=== PATIENT | female | born 1980 | race Caucasian/White ===

== ENCOUNTER 2019-04-15 11:18 | Observation (INO) | payer OTHER ==
[2019-04-15 11:34] VITALS: BMI 31.6
[2019-04-15 12:20] LABS: BASO # 0.1 K/uL (0.0-0.2); BASO % 1.1 % (0.0-2.0); EOS # 0.1 K/uL (0.0-0.7); EOS % 1.2 % (0.0-4.0); HEMOGLOBIN 13.2 g/dL (11.0-16.0); LYMPH % 26.2 % (20.0-40.0); MEAN CELL VOLUME 82.2 fL (81.0-99.0); MEAN CORPUSCULAR HEMOGLOBIN 27.8 pg (27.0-31.0); MEAN CORPUSCULAR HGB CONC 33.8 g/dL (33.0-37.0); MEAN PLATELET VOLUME 7.6 fL (7.2-11.7); MONO # 0.5 K/uL (0.0-0.8); MONO % 6.8 % (0.0-10.0); NEUT % 64.7 % (50.0-75.0); NRBC % 0.1 % (0.0-2.0); RBC 4.75 Mil/uL (3.80-5.20); RED CELL DISTRIBUTION WIDTH 14.7 % (11.5-14.5); WHITE BLOOD COUNT 7.7 K/uL (4.8-10.8)
[2019-04-15] MEDS ORDERED: Sodium Chloride 0.9% 500 ML IV ONE ×2 (12:33→12:38)
[2019-04-15 12:35] LABS: INR 1.1; PARTIAL THROMBOPLASTIN TIME 33.7 SECONDS (21-34); PROTHROMBIN TIME 11.9 SECONDS (9.7-12.2)
[2019-04-15 12:38] LABS: ALBUMIN 4.2 g/dL (3.5-5.0); BLOOD UREA NITROGEN 10 mg/dL (7-17); CALCIUM 9.2 mg/dl (8.6-10.4); GFR NON-AFRICAN AMERICAN > 60; LIPASE 56 U/L (23-300)
[2019-04-15 12:43] LABS: SQUAMOUS EPITHIAL 3 /hpf (0-5); URINE BILIRUBIN NEGATIVE (NEGATIVE); URINE BLOOD NEGATIVE (NEGATIVE); URINE CLARITY Clear (Clear); URINE COLOR Amber (YELLOW); URINE GLUCOSE (UA) NORMAL (Normal); URINE LEUKOCYTE ESTERASE NEG Leu/uL (Negative); URINE PROTEIN NEGATIVE (NEGATIVE); URINE UROBILINOGEN NORMAL mg/dL (0.2-1.0)
[2019-04-15 12:44] LABS: HCG,QUALITATIVE URINE NEGATIVE (NEGATIVE)
[2019-04-15 12:45] LABS: ALT/SGPT 18 U/L (9-52); AST/SGOT 38 U/L (14-36)
--- NOTE | 2019-04-15 12:52 | RAD ---
HISTORY: cp COMPARISON: None available. TECHNIQUE: Chest, one view. FINDINGS: Examination limited by habitus and hypoinflation. LUNGS: No focal consolidation. Please note that chest x-ray has limited sensitivity for the detection of pulmonary masses. PLEURA: No significant pleural effusion identified. No definite pneumothorax . CARDIOVASCULAR: Heart size appears within normal limits. No significant atherosclerotic calcification present. OSSEOUS STRUCTURES: No acute osseous abnormality identified. VISUALIZED UPPER ABDOMEN: Unremarkable. OTHER FINDINGS: None. IMPRESSION: Hypoinflation. No acute findings identified.
[2019-04-15 13:02] LABS: CK-MB < 0.22 ng/mL (0.0-3.38)
[2019-04-15] MEDS ORDERED: Iodixanol 320 MG/ML 100 ML BOTTLE IV ONE (13:15)
--- NOTE | 2019-04-15 14:03 | C.PDOC ---
History Of Present Illness 38 y/o female presents to ED complaining of sternal chest pain radiating to back that started yesterday, associated with nausea and vomiting. Denies any past medical history. States [place] in the [place] from [place] on 03/07[place]. Denies cough, fever, palpitations, diarrhea, or abdominal pain. Time Seen by Provider: 04/15/19 11:40 Chief Complaint (Nursing): Chest Pain History Per: Patient History/Exam Limitations: no limitations Onset/Duration Of Symptoms: Days Current Symptoms Are (Timing): Still Present Past Medical History Reviewed: Historical Data, Nursing Documentation, Vital Signs Vital Signs: Last Vital Signs Temp 98.2 F 04/15/19 11:28 Pulse 82 04/15/19 11:28 Resp 25 H 04/15/19 11:28 BP 140/73 04/15/19 11:28 Pulse Ox 95 04/15/19 11:28 Primary Care Provider: Romulo Rdz - Medical History PMH: HTN (Not Medicated) Family History: States: No Known Family Hx - Social History Hx Alcohol Use: No Hx Substance Use: No - Immunization History Hx Tetanus Toxoid Vaccination: No Hx Influenza Vaccination: No Hx Pneumococcal Vaccination: No Review Of Systems Constitutional: Negative for: Fever, Chills Cardiovascular: Positive for: Chest Pain (sternal chest pain). Negative for: Palpitations Respiratory: Negative for: Cough Gastrointestinal: Positive for: Nausea, Vomiting. Negative for: Abdominal Pain, Diarrhea Skin: Negative for: Rash Physical Exam - Physical Exam Appears: Non-toxic, Other (Uncomfortable) Skin: Warm, Dry Head: Normacephalic Eye(s): bilateral: Normal Inspection Oral Mucosa: Moist Neck: Supple Cardiovascular: Rhythm Regular, No Murmur Respiratory: Normal Breath Sounds, No Rales, No Rhonchi, No Wheezing Gastrointestinal/Abdominal: Soft, No Tenderness Extremity: No Other (leg edema) Extremity: Bilateral: Atraumatic, Normal ROM Neurological/Psych: Oriented x3, Normal Speech ED Course And Treatment - Laboratory Results Result Diagrams: 04/15/19 12:17 04/15/19 12:17 Lab Results: PT 11.9 SECONDS (9.7-12.2) 04/15/19 12:17 INR 1.1 04/15/19 12:17 APTT 33.7 SECONDS (21-34) 04/15/19 12:17 D-Dimer, Quantitative 483 ng/mlDDU (0-243) H 04/15/19 12:17 Troponin I < 0.0120 ng/mL (0.00-0.120) 04/15/19 12:17 Total Bilirubin 0.6 mg/dL (0.2-1.3) 04/15/19 12:17 AST 38 U/L (14-36) H 04/15/19 12:17 ALT 18 U/L (9-52) 04/15/19 12:17 Alkaline Phosphatase 48 U/L (38-126) 04/15/19 12:17 Total Protein 8.1 g/dL (6.3-8.3) 04/15/19 12:17 Albumin 4.2 g/dL (3.5-5.0) 04/15/19 12:17 Globulin 4.0 gm/dL (2.2-3.9) H 04/15/19 12:17 Albumin/Globulin Ratio 1.0 (1.0-2.1) 04/15/19 12:17 Lipase 56 U/L (23-300) 04/15/19 12:17 Urine Color Adelaida (YELLOW) 04/15/19 12:36 Urine Clarity Clear (Clear) 04/15/19 12:36 Urine pH 8.0 (5.0-8.0) 04/15/19 12:36 Ur Specific [place] 1.008 (1.003-1.030) 04/15/19 12:36 Urine Protein Negative mg/dL (NEGATIVE) 04/15/19 12:36 Urine Glucose (UA) Normal mg/dL (Normal) 04/15/19 12:36 Urine Ketones Negative mg/dL (NEGATIVE) 04/15/19 12:36 Urine Blood Negative (NEGATIVE) 04/15/19 12:36 Urine Nitrate Negative (NEGATIVE) 04/15/19 12:36 Urine Bilirubin Negative (NEGATIVE) 04/15/19 12:36 Urine Urobilinogen Normal mg/dL (0.2-1.0) 04/15/19 12:36 Ur Leukocyte Esterase Neg Noni/uL (Negative) 04/15/19 12:36 Urine WBC (Auto) 1 /hpf (0-5) 04/15/19 12:36 Urine RBC (Auto) < 1 /hpf (0-3) 04/15/19 12:36 Ur Squamous Epith Cells 3 /hpf (0-5) 04/15/19 12:36 Urine HCG, Qual Negative (NEGATIVE) 04/15/19 12:36 Urine HCG, Qual Negative (NEGATIVE) 04/15/19 12:36 ECG: Interpreted By Me, Viewed By Me ECG Rhythm: Sinus Rhythm Interpretation Of ECG: Normal axis. No acute ST/T wave changes. Rate From EC O2 Sat by Pulse Oximetry: 95 (RA) Pulse Ox Interpretation: Normal - Other Rad Chest XR X-Ray: Read By Radiologist Interpretation: FINDINGS: Examination limited by habitus and hypoinflation. LUNGS: No focal consolidation. Please note that chest x-ray has limited sensitivity for the detection of pulmonary masses. PLEURA: No significant pleural effusion identified. No definite pneumothorax . CARDIOVASCULAR: Heart size appears within normal limits. No significant atherosclerotic calcification present. OSSEOUS STRUCTURES: No acute osseous abnormality identified. VISUALIZED UPPER ABDOMEN: Unremarkable. OTHER FINDINGS: None. IMPRESSION: Hypoinflation. No acute findings identified. - CT Scan/US Chest CT Other Rad Studies (CT/US): Read By Radiologist, Radiology Report Reviewed CT/US Interpretation: Findings: Examination limited by habitus. Heterogeneous enlarged left lower pole thyroid gland with substernal extension and numerous probable hypodense nodules. The mediastinal and hilar vascular structures appear within normal limits. The heart appears within normal limits of size. Sub cm prevascular lymph nodes, nonspecific. There is suboptimal opacification of the pulmonary arteries limiting evaluation for pulmonary embolus. Given this limitation, there are no visible intraluminal filling defects within the central pulmonary arteries to suggest central pulmonary embolism. No focal consolidation. No pleural effusion. No pneumothorax. 4 mm right posterior upper lobe nodule (series 4, image 22). Limited visualized portions of the upper abdomen appear grossly unremarkable. No acute osseous abnormality is detected. Impression: There is suboptimal opacification of the pulmonary arteries limiti ng evaluation for pulmonary embolus. Given this limitation, there are no visible intraluminal filling defects within the central pulmonary arteries to suggest central pulmonary embolism. 4 mm right posterior upper lobe nodule. According to the 2017 Fleischner criteria, if the patient is low risk, no routine follow-up is recommended. If the patient is high risk, an optional CT at 12 months is recommended. Heterogeneous enlarged left lower pole thyroid gland with substernal extension and numerous probable hypodense nodules. Correlate clinically and recommend follow-up outpatient thyroid ultrasound for further evaluation if indicated. Progress Note: Labs, chest XR, and EKG ordered. Patient had elevated D-Dimer. Angio chest CT ordered. Patient given IV fluids. Disposition - Disposition Forms: [employer] (Latvian) - Scribe Statement The provider has reviewed the documentation as recorded by the Jose Alejandro Nielsen Provider Attestation: All medical record entries made by the Jose Alejandro were at my direction and personally dictated by me. I have reviewed the chart and agree that the record accurately reflects my personal performance of the history, physical exam, medical decision making, and the department course for this patient. I have also personally directed, reviewed, and agree with the discharge instructions and disposition.
--- NOTE | 2019-04-15 14:18 | CT ---
Date of service: 04/15/2019 CTA chest PE protocol Indication: Cp, elevated d-dimer Technique: Contiguous axial images were obtained through the chest with intravenous contrast enhancement. Sagittal and coronal reconstructions were generated and reviewed. This CT exam was performed using 1 or more of the following dose reduction techniques: Automated exposure control, adjustment of the MAA and/or kV according to patient size, and/or use of iterative reconstruction technique. IV contrast: 100 mL Visipaque 320 IV Radiation dose (DLP): 521.3 MGy-cm. Comparison: Chest x-ray performed 04/15/19 Findings: Examination limited by habitus. Heterogeneous enlarged left lower pole thyroid gland with substernal extension and numerous probable hypodense nodules. The mediastinal and hilar vascular structures appear within normal limits. The heart appears within normal limits of size. Sub cm prevascular lymph nodes, nonspecific. There is suboptimal opacification of the pulmonary arteries limiting evaluation for pulmonary embolus. Given this limitation, there are no visible intraluminal filling defects within the central pulmonary arteries to suggest central pulmonary embolism. No focal consolidation. No pleural effusion. No pneumothorax. 4 mm right posterior upper lobe nodule (series 4, image 22). Limited visualized portions of the upper abdomen appear grossly unremarkable. No acute osseous abnormality is detected. Impression: There is suboptimal opacification of the pulmonary arteries limiting evaluation for pulmonary embolus. Given this limitation, there are no visible intraluminal filling defects within the central pulmonary arteries to suggest central pulmonary embolism. 4 mm right posterior upper lobe nodule. According to the 2017 Fleischner criteria, if the patient is low risk, no routine follow-up is recommended. If the patient is high risk, an optional CT at 12 months is recommended. Heterogeneous enlarged left lower pole thyroid gland with substernal extension and numerous probable hypodense nodules. Correlate clinically and recommend follow-up outpatient thyroid ultrasound for further evaluation if indicated.
[2019-04-15] MEDS ORDERED: Enoxaparin 40 mg Syringe SC STA (15:19)
[2019-04-15] MEDS ORDERED: Enoxaparin 100 mg Syringe ONE (15:55)
[2019-04-15] MEDS ORDERED: Morphine 4 MG/ML VIAL ONE (15:55)
[2019-04-15 17:07] VITALS: RESP 20
[2019-04-15 19:49] LABS: CK-MB < 0.22 ng/mL (0.0-3.38)
[2019-04-16 08:09] LABS: HDL CHOLESTEROL 52 mg/dL (30-70)
[2019-04-16 08:26] LABS: CK-MB 0.29 ng/mL (0.0-3.38)
[2019-04-16 08:32] LABS: LDL CHOLESTEROL 110 mg/dL (0-129)
[2019-04-16] MEDS: Enoxaparin 40 mg Syringe SC SCH (09:23)
[2019-04-16] MEDS ORDERED: Iodixanol 320 MG/ML 100 ML BOTTLE IV ONE (10:07)
--- NOTE | 2019-04-16 14:21 | CT ---
Date of service: 04/16/2019 CTA chest PE protocol Indication: R/O PE Technique: Contiguous axial images were obtained through the chest with intravenous contrast enhancement. Sagittal and coronal reconstructions were generated and reviewed. This CT exam was performed using 1 or more of the following dose reduction techniques: Automated exposure control, adjustment of the MAA and/or kV according to patient size, and/or use of iterative reconstruction technique. IV contrast: 100 mL Visipaque 320 IV Radiation dose (DLP): 516.87 MGy-cm. Comparison: CTA chest performed 04/15/19 Findings: Examination limited by patient inability to maintain breath hold. Visualized portions of the inferior thyroid gland: Heterogeneous enlarged left lower pole thyroid gland with substernal extension and numerous probable hypodense nodules. The mediastinal and hilar vascular structures appear within normal limits. The heart appears within normal limits of size. No large central or segmental pulmonary embolus evident. No focal consolidation. No pleural effusion. No pneumothorax. 4 mm right posterior upper lobe nodule (series 4, image 21). Limited visualized portions of the upper abdomen appear grossly unremarkable. No acute osseous abnormality is detected. Impression: Examination limited by patient inability to breath hold. No large central or segmental pulmonary embolus identified. 4 mm right posterior upper lobe nodule. According to the 2017 Fleischner criteria, if the patient is low risk, no routine follow-up is recommended. If the patient is high risk, an optional CT at 12 months is recommended. Heterogeneous enlarged left lower pole thyroid gland with substernal extension and numerous probable hypodense nodules. Correlate clinically and recommend follow-up outpatient thyroid ultrasound for further evaluation if indicated.
--- NOTE | 2019-04-16 16:15 | CP.PCM.CON ---
History of Present Illness - History of Present Illness History of Present Illness: Please refer to a dictated consult Past Patient History - Past Social History Smoking Status: Never Smoked - CARDIAC Hx Hypertension: Yes (Not Medicated) - PSYCHIATRIC Hx Substance Use: No - SURGICAL HISTORY Hx Surgeries: No - ANESTHESIA Hx Anesthesia: No Meds Allergies/Adverse Reactions: Allergies Allergy/AdvReac Type Severity Reaction Status Date / Time Penicillins Allergy Verified 04/15/19 12:54 - Medications Medications: Current Medications Acetaminophen (Tylenol 325mg Tab) 650 mg PO Q6 PRN PRN Reason: Pain, Mild (1-3) Aspirin (Aspirin Chewable) 81 mg PO DAILY [facility] Last Admin: 04/16/19 09:23 Dose: 81 mg Enoxaparin Sodium (Lovenox) 40 mg SC DAILY [facility] Last Admin: 04/16/19 09:23 Dose: 40 mg Sodium Chloride (Sodium Chloride 0.9%) 1,000 mls @ 100 mls/hr IV .Q10H [facility] Stop: 04/17/19 02:00 Morphine Sulfate (Morphine) 1 mg IVP Q4 PRN PRN Reason: Pain, moderate (4-7) Last Admin: 04/16/19 12:31 Dose: 1 mg Ondansetron HCl (Zofran Inj) 4 mg IVP Q8 PRN PRN Reason: Nausea/Vomiting Pantoprazole Sodium (Protonix Ec Tab) 40 mg PO BID [facility] Results - Vital Signs Recent Vital Signs: Last Vital Signs Temp 98.1 F 04/16/19 08:00 Pulse 96 H 04/16/19 12:57 Resp 20 04/16/19 08:00 BP 134/84 04/16/19 08:00 Pulse Ox 95 04/16/19 08:00 - Labs Result Diagrams: 04/15/19 12:17 04/15/19 12:17 Labs: Laboratory Results - last 24 hr 04/15/19 04/16/19 04/16/19 19:19 07:49 07:49 Hemoglobin A1c 5.6 Total Creatine Kinase 38 CK-MB (Mass) < 0.22 Troponin I < 0.0120 Triglycerides 115 Cholesterol 189 LDL Cholesterol Direct 110 HDL Cholesterol 52 04/16/19 07:49 Hemoglobin A1c Total Creatine Kinase 36 CK-MB (Mass) 0.29 Troponin I < 0.0120 Triglycerides Cholesterol LDL Cholesterol Direct HDL Cholesterol
[2019-04-16] MEDS: Sodium Chloride 0.9% 1,000 ML IV SCH (17:04)
[2019-04-16] MEDS: Pantoprazole 40 mg EC Tab PO SCH (17:07)
[2019-04-16 20:40] LABS: CK-MB < 0.22 ng/mL (0.0-3.38)
--- NOTE | 2019-04-16 23:29 | CON ---
DATE: 04/16/2019 CARDIOLOGY CONSULTATION The patient and her are both poor historians. HISTORY OF PRESENT ILLNESS: The patient is a 38-year-old [place] female who has no significant past medical history except for low vitamin D. According to the patient, she presented because of experiencing chest pain and shortness of breath after she went upstairs from a [place] [employer] [place]. The patient is unaware of any prior cardiac history. The patient had a transatlantic flight from [place] on 03/07/2019 and had no problems during or after the flight. SOCIAL HISTORY: Nonsmoker and nondrinker. . Lives with her . MEDICATIONS: Aspirin 81 mg once a day, Lovenox 40 mg subcutaneous once a day, Zofran 4 mg intravenous every 8 hours p.r.n., Tylenol 650 mg p.o. every 6 hours p.r.n. REVIEW OF SYSTEMS: The patient complains of vomiting. No fever or chills. No diarrhea. PHYSICAL EXAMINATION: GENERAL: The patient is a moderately obese female who does not appear to be in any distress. VITAL SIGNS: Blood pressure 134/84, heart rate 97, temperature 97.5, and respirations 20. HEENT: Normocephalic. CHEST: Clear. HEART: S1, S2. Regular. ABDOMEN: Soft. EXTREMITIES: No edema or calf tenderness. LABORATORY DATA: EKG revealed normal sinus rhythm. Admitting SMA-7 is within normal limit except for creatinine 0.5. Three sets of troponins are negative. Lipid profile is within normal limits. Lipase is within normal limits. D-dimer is elevated 483. On chest CT angio, there is suboptimal opacification of the pulmonary arteries limiting the evaluation of pulmonary embolus. ASSESSMENT: 1. Chest pain, myocardial infarction is ruled out. 2. Rule out pulmonary infarction. 3. Rule out biliary colic. RECOMMENDATIONS: Continue aspirin 81 mg once a day, Lovenox at 40 mg subcutaneous once a day. Obtain an echocardiographic study, repeat chest CT angio as well as gallbladder ultrasound. Jack Ferreira MD
--- NOTE | 2019-04-17 00:16 | HP ---
HISTORY OF PRESENT ILLNESS: This is a 38-year-old [place] female with no significant past medical history, presented to emergency room with symptoms of burning like chest pain, retrosternal, that radiates to the back intermittently for the 1 day prior to this admission. The patient denied to have these symptoms before. These symptoms were associated with shortness of breath but no palpitation and no other cardiopulmonary symptoms. The patient denied to have any cough or expectoration. No fever. Other review of systems is negative. ALLERGIES: POSITIVE FOR PENICILLIN. MEDICATIONS AT HOME: None. PAST MEDICAL HISTORY: None significant. Last menstrual period was a week ago. SOCIAL HISTORY: No history of smoking, EtOH or substance abuse. FAMILY HISTORY: Noncontributory. PHYSICAL EXAMINATION: GENERAL: The patient is in bed, not in any cardiopulmonary distress. VITAL SIGNS: Blood pressure 134/84, temperature 98.1, respiratory rate 20 and pulse 87. HEENT: Pupils equal, reactive to light. Normal-appearing mucosa of the conjunctivae, oropharynx and nasal membrane mucosa. NECK: Supple. No JVD, no carotid bruit. No lymph node. No thyromegaly. CHEST AND LUNGS: Bilateral symmetrical expansion. Good air exchange. No rales, no rhonchi. CARDIOVASCULAR SYSTEM: PMI not localized. S1, S2. No additional sounds. ABDOMEN: Normoactive bowel sounds. No tenderness, no organomegaly. No masses. EXTREMITIES: No cyanosis, no clubbing, no edema. CENTRAL NERVOUS SYSTEM: Alert, awake, oriented x3. No neurological deficits could be appreciated. LABORATORY DATA: Blood work showed that D-dimer is elevated but otherwise, it is unremarkable. ASSESSMENT: 1. Atypical chest pain, rule out acute coronary syndrome. Less likely to be pulmonary embolus as the patient did not have any risk factors for provoked deep venous thrombosis or venous thromboembolic disease. 2. Possible gastroesophageal reflux. 3. Rule out cholelithiasis. PLAN: We will follow CAT scan, CT angiogram report, and we will do abdominal ultrasound. Start the patient on proton pump inhibitor. Cardiology consult. Silvana MD [place]
[2019-04-17] MEDS: Sodium Chloride 0.9% 1,000 ML IV SCH (03:00)
[2019-04-17 07:40] VITALS: TEMP 98.1
--- NOTE | 2019-04-17 09:35 | US ---
Date of service: 04/17/2019 HISTORY: r/o gall stones COMPARISON: None. TECHNIQUE: Sonographic evaluation of the right upper quadrant of the abdomen. FINDINGS: LIVER: Measures 14.2 cm in length. Patent portal and hepatic venous systems. Hepatopedal blood flow. Fatty infiltration manifest ultrasonographically as increased echogenicity of the liver parenchyma. No mass. No intrahepatic bile duct dilatation. GALLBLADDER: Unremarkable. No gallstones. COMMON BILE DUCT: Measures 2.5 mm. No stones. No dilatation. PANCREAS: Unremarkable as visualized. No mass. No ductal dilatation. RIGHT KIDNEY: Measures 4.5 x 11.1 cm in length. Normal echogenicity. No calculus, mass, or hydronephrosis. AORTA: No aneurysmal dilatation. IVC: Unremarkable. OTHER FINDINGS: None . IMPRESSION: Hepatic steatosis. Otherwise unremarkable study.
[2019-04-17] MEDS: Enoxaparin 40 mg Syringe SC SCH (10:05)
[2019-04-17] MEDS: Pantoprazole 40 mg EC Tab PO SCH (10:05)
--- NOTE | 2019-04-17 14:27 | CARD ---
APPROVED REPORT Date of service: 04/17/2019 EXAM: Two-dimensional and M-mode echocardiogram with Doppler and color Doppler. Other Information Quality : GoodRhythm : INDICATION Chest Pain RISK FACTORS Hypertension Obesity 2D DIMENSIONS IVSd1.0 (0.7-1.1cm)LVDd3.8 (3.9-5.9cm) PWd1.1 (0.7-1.1cm)LA Jasncp99 (18-58mL) LVDs2.7 (2.5-4.0cm)FS (%) 29.9 % LVEF (%)57.8 (>50%)LVEF (Johnson's)65.14 % IVC0.00 cm M-Mode DIMENSIONS RVDd1.94 (2.1-3.2cm)Left Atrium (MM)3.87 (2.5-4.0cm) IVSd0.77 (0.7-1.1cm)Aortic Root2.47 (2.2-3.7cm) LVDd4.48 (4.0-5.6cm)Aortic Cusp Exc.1.87 (1.5-2.0cm) PWd0.83 (0.7-1.1cm)FS (%) 38 % LVDs2.80 (2.0-3.8cm)LVEF (%)68 (>50%) Mitral Valve MV E Ecygjskz288.6cm/sMV A Znzilaxf74.6cm/sE/A ratio1.7 TDI Lateral E' Peak V11.58cm/sMedial E' Peak V10.93cm/sE/Lateral E'8.7 E/Medial E'9.2 Tricuspid Valve TR Peak Iddrjbct140ny/sTR Peak Gr.[id number] <Conclusion> normal size la,lv & ra rv. normal lv wall motion,thickness,systolic & diastolic funciton with lvef of 60-65%. normal aortic,mitral,tv & pv. trace mr,tr & pi with normal pulmonary systolic pressures of 22 mm of hg. no pericardial effusion. normal size aortic root & ivc.
--- NOTE | 2019-04-17 15:30 | CARD ---
APPROVED REPORT Date of service: 04/16/2019 EKG Measurement Heart [id number] CO [id number] <Conclusion> Normal sinus rhythm Normal ECG
[2019-04-17 16:52] VITALS: BP 102/67; PULSE 83; O2SAT 96
--- NOTE | 2019-04-17 21:02 | PN ---
DATE: 04/17/2019 SUBJECTIVE: The patient denies chest pain or dizziness. No reported ventricular arrhythmia. PHYSICAL EXAMINATION: VITAL SIGNS: Blood pressure 99/65, heart rate 75, temperature 98.1, respirations 20. HEENT: Normocephalic. CHEST: Clear. HEART: S1 and S2, regular. EXTREMITIES: No edema. LABORATORY DATA: Venous Doppler of the lower extremity, preliminary report, no evidence of DVT. Gallbladder ultrasound, hepatic steatosis, otherwise normal study. Repeat chest CT angio, examination limited by the patient inability to hold breaths. No large central or segmental pulmonary emboli identified. Heterogeneous, retrosternal goiter with numerous hypodense nodules. ASSESSMENT: 1. Chest pain with myocardial infraction was ruled out. 2. Retrosternal goiter. 3. Obesity. 4. Hepatic steatosis. 5. Rule out gastroesophageal reflux. RECOMMENDATIONS: Case was discussed with Dr. Rdz. Continue aspirin, subcutaneous Lovenox, and oral Protonix. TSH level came within normal limit. I did request thyroid ultrasound. The patient should be scheduled for treadmill stress test as an outpatient. Jack Ferreira MD
--- NOTE | 2019-04-18 11:55 | VASCLAB ---
Date of service: 04/17/2019 PROCEDURE: Lower Extremity Venous Duplex Exam. HISTORY: Leg swelling PRIORS: None. TECHNIQUE: Bilateral common femoral, femoral, popliteal and posterior tibial, peroneal and great saphenous veins were evaluated. Flow was assessed with color Doppler, compressibility, assessment of phasic flow and augmentation response. Report prepared by Regino Gibbons, JOSE, RVT FINDINGS: RIGHT: 1. Common Femoral Vein: 1.1. Compressibility - Fully compressible: Thrombus - None : Flow - Phasic: Augmentation -Normal: Reflux - None. 2. Femoral Vein: 2.1. Compressibility - Fully compressible: Thrombus - None : Flow - Phasic: Augmentation -Normal: Reflux - None. 3. Popliteal Vein: 3.1. Compressibility - Fully compressible: Thrombus - None : Flow - Phasic: Augmentation -Normal: Reflux - None. 4. Posterior Tibial Vein: 4.1. Compressibility - Fully compressible: Thrombus - None: Flow - Phasic: Augmentation -Normal: Reflux - None. 5. Peroneal Vein: 5.1. Compressibility - Fully compressible: Thrombus - None: Flow - Phasic: Augmentation -Normal: Reflux - None. 6. Great Saphenous Vein: 6.1. Compressibility - Fully compressible: Thrombus - None: Flow - Phasic: Augmentation - Normal: Reflux - None. LEFT: 1. Common Femoral Vein: 1.1. Compressibility - Fully compressible: Thrombus - None: Flow - Phasic: Augmentation -Normal: Reflux - None. 2. Femoral Vein: 2.1. Compressibility - Fully compressible: Thrombus - None: Flow - Phasic: Augmentation -Normal: Reflux - None. 3. Popliteal Vein: 3.1. Compressibility - Fully compressible: Thrombus - None : Flow - Phasic: Augmentation -Normal: Reflux - None. 4. Posterior Tibial Vein: 4.1. Compressibility - Fully compressible: Thrombus - None: Flow - Phasic: Augmentation -Normal: Reflux - None. 5. Peroneal Vein: 5.1. Compressibility - Fully compressible: Thrombus - None: Flow - Phasic: Augmentation -Normal: Reflux - None. 6. Great Saphenous Vein: 6.1. Compressibility - Fully compressible: Thrombus - None: Flow - Phasic: Augmentation - Normal: Reflux - None. OTHER FINDINGS: Right: None significant. Left: None significant. IMPRESSION: Right: No evidence of deep or superficial vein thrombosis of the right lower extremity. Normal valve function noted of the right side. Left: No evidence of deep or superficial vein thrombosis of the left lower extremity. Normal valve function noted of the left side.
--- NOTE | 2019-04-18 13:20 | US ---
Date of service: 04/17/2019 HISTORY: goiter TECHNIQUE: Sonographic evaluation of the thyroid gland. COMPARISON: None available. FINDINGS: RIGHT LOBE: Measures 5.9 x 1.9 x 2.7 cm. Heterogeneous echotexture and flow. Nodules: Midpole hypoechoic nodule measuring 5 x 4 x 5 millimeters. Midpole heterogeneous hypoechoic nodule measuring 6 x 4 x 6 millimeters containing internal echogenic foci/calcifications. Lower pole heterogeneous mixed echogenic nodule measuring 6.5 x 3.9 x 5.9 millimeters. LEFT LOBE: Measures 6.6 x 2.5 x 2.9 cm. Heterogeneous echotexture and flow. Nodules: Complex mid to lower pole 3.7 x 2.0 x 3.3 centimeter solid echogenic nodule with associated internal cystic components. ISTHMUS: Measures 0.4 cm. Normal echotexture and flow. Nodules: None OTHER FINDINGS: None . 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
== END 2019-04-17 18:21 | disposition home or self-care (01) ==
LOC: C.ER 11:18 → C.9E 15:24 → C.6T 16:02
PROVIDERS: ADMIT Internal Medicine; ATTEND Internal Medicine
DX: R07.89 Other chest pain (principal); I10 Essential (primary) hypertension; E66.9 Obesity, unspecified; K76.0 Fatty (change of) liver, not elsewhere classified; E04.8 Other specified nontoxic goiter; Z88.0 Allergy status to penicillin
CPT/HCPCS: 36415; 71045; 71275; 76536; 76705; 80053; 80061; 81001; 82550; 82553; 82948; 83036; 83690; 84443; 84484; 84703; 85025; 85378; 85610; 85730; 93005; 93306; 93970; 96372; 96374; 99285; G0378; J1650; J2270; J7030; J7040; Q9967